=== PATIENT | male | born 1995 | race African-American/Black ===

== ENCOUNTER 2020-06-11 13:37 | Emergency (ER) | payer MEDICAID ==
[~2020-06-11] VITALS: Ht 188 cm; Wt 160.0 kg
[2020-06-11 18:18] LABS: BASOPHILS % 0.6 % (0.0-2.0); EOSINOPHILS % 0.6 % (0.0-5.0); HEMATOCRIT. 42.3 % (42.0-52.0); HEMOGLOBIN. 13.3 g/dL (14.0-18.0); LYMPHOCYTES % 14.5 % (20.0-50.0); MEAN CORPUSCULAR HEMOGLOBIN 22.8 pg (28.0-32.0); MEAN CORPUSCULAR VOLUME 72.1 fL (80.0-94.0); MEAN PLATELET VOLUME 9.7 fl (7.4-10.4); MONOCYTES % 10.9 % (2.0-8.0); NEUTROPHILS % 73.4 % (40.0-76.0); PLATELET 229 x1000/uL (130-400); RED BLOOD CELL COUNT 5.87 mill/uL (4.7-6.1); RED CELL DISTRIBUTION WIDTH 14.8 % (11.6-14.6)
[2020-06-11 18:21] LABS: CHLORIDE 104 mEq/L (98-107)
[2020-06-11 19:01] VITALS: BP 150/75
== END 2020-06-11 19:12 | disposition home or self-care (01) ==
LOC: ER 13:37
DX: R06.02 Shortness of breath (principal)
CPT/HCPCS: 36415; 71045; 80053; 84484; 85025; 93005; 99285